=== PATIENT | male | born 1990 | race Caucasian/White ===

== ENCOUNTER 2021-03-23 16:44 | Emergency (ER) | payer MEDICAID ==
[~2021-03-23] VITALS: Ht 177.8 cm; Wt 87.0 kg
[2021-03-23] MEDS ORDERED: SERT25TA MT (20:30)
[2021-03-23] MEDS ORDERED: LORAZEPAM 1MG TABLET PO ONE (20:30)
[2021-03-23 21:45] VITALS: BP 130/76
== END 2021-03-23 21:47 | disposition home or self-care (01) ==
LOC: ER 16:44
DX: F41.1 Generalized anxiety disorder (principal); Z79.899 Other long term (current) drug therapy
CPT/HCPCS: 93005; 99283